=== PATIENT | female | born 1950 | race American Indian/Alaskan Native ===

== ENCOUNTER 2017-06-16 12:55 | Outpatient (CLI) | payer BC ==
--- NOTE | 2017-06-16 13:30 | XRay Report ---
XRAY LEFT HIP 2 VIEWS: 06/16/17 12:55:00 CLINICAL: Left hip pain. FINDINGS: Moderate osteopenia. No fracture or dislocation. Moderate osteoarthritis with mild narrowing of the superolateral joint space, superior acetabular eburnation and a small inferior osteophyte. Similar changes in the right hip. The pelvic bones are intact. Mild bilateral SI joint sclerosis with no erosions. Normal soft tissues.. IMPRESSION: Moderate osteoarthritis.
== END 2017-06-16 12:56 | disposition home or self-care (01) ==
LOC: SPVIMAG 12:55
PROVIDERS: ATTEND Orthopaedic Surgery Sports Medicine
DX: M16.12 Unilateral primary osteoarthritis, left hip (principal); M85.88 Other specified disorders of bone density and structure, other site